=== PATIENT | female | born 1975 | race Two or more races ===

== ENCOUNTER 2017-04-02 15:39 | Emergency (ER) | payer MEDICAID ==
[~2017-04-02] VITALS: Ht 165.1 cm; Wt 9.1 kg
[2017-04-02 18:26] LABS: Basophils # (auto) 0 uL; Basophils % (auto) 0.4 % (0.0-2.0); CONDITION Y; Eosinophils # (auto) 0.1 uL; Eosinophils % (auto) 0.9 % (0.0-7.0); Hematocrit 41.8 % (36.0-46.0); Hemoglobin 14.2 g/dL (12.2-16.2); Lymphocytes # (auto) 3.2 uL; Lymphocytes % (auto) 35.7 % (10.0-50.0); Mean Corpuscular Hemoglobin 32.1 pg (28.0-32.0); Mean Corpuscular Volume 94.3 fL (80.0-100.0); Mean Platelet Volume 7.7 fL (7.4-10.4); Monocytes # (auto) 0.4 uL; Monocytes % (auto) 4.4 % (0.0-12.0); Neutrophils # (auto) 5.2 uL; Neutrophils % (auto) 58.6 % (37.0-80.0); Platelet Count (auto) 340 10^3/uL (140-450); Red Cell Distribution Width 14.8 % (11.6-16.0); White Blood Cell 8.9 10^3/uL (4.4-10.8)
[2017-04-02 18:43] LABS: Albumin 3.6 g/dL (3.4-5.0); BUN/Creatinine Ratio 8.2; Calcium 8.2 mg/dL (8.5-10.1)
[2017-04-02 18:46] LABS: Bilirubin, Total 0.1 mg/dL (0.2-1.0); Total Protein 6.9 g/dL (6.4-8.2)
[2017-04-02 19:42] LABS: Urine Bilirubin Negative (Negative); Urine Blood Negative /uL (Negative); Urine Color Yellow (Yellow); Urine Glucose Normal (Normal); Urine Ketone Negative (Negative); Urine Mucus FEW (None Seen); Urine Nitrite Negative (Negative); Urine RBC 1 /hpf (0 - 4); Urine Squamous Epithelial Cell FEW /hpf (<5); Urine Urobilinogen Normal (Negative); Urine pH 6.5 (5.0-8.0)
[2017-04-02] MEDS ORDERED: KETOROLAC TROMETH 60MG/2ML VIAL IM ONE (20:45)
[2017-04-02] MEDS ORDERED: IOHEXOL 300 MG/ML 100ML BOTTLE IJ ONE (20:54)
[2017-04-02] MEDS ORDERED: KETOROLAC TROMETH 30 MG/ML 1ML VIAL IV ONE (21:30)
[2017-04-02 22:12] VITALS: BP 115/70
== END 2017-04-03 00:04 | disposition home or self-care (01) ==
LOC: ER 15:49
DX: R10.84 Generalized abdominal pain (principal); I50.9 Heart failure, unspecified; J44.9 Chronic obstructive pulmonary disease, unspecified; Z87.442 Personal history of urinary calculi; Z86.19 Personal history of other infectious and parasitic diseases; Z88.8 Allergy status to other drugs, medicaments and biological substances
CPT/HCPCS: 36415; 74177; 80053; 81001; 81025; 82150; 83690; 85025; 96374; 99285; J1885; Q9967

== ENCOUNTER 2023-09-18 10:03 | Emergency (ER) | payer MEDICAID ==
[~2023-09-18] VITALS: Ht 167.6 cm; Wt 112.0 kg
[2023-09-18] MEDS ORDERED: PENICILLIN G BENZ 1,200,000 UNITS/2 ML SYRG IM ONE (15:15)
[2023-09-18 15:45] VITALS: BP 132/98; PULSE 96; RESP 20; O2SAT 96
[2023-09-18 16:16] LABS: Urine Bacteria NONE SEEN /hpf (None Seen); Urine Blood Negative /uL (Negative); Urine Clarity Clear (Clear); Urine Color Yellow (Yellow); Urine Protein, UAD Negative (Negative); Urine Specific Gravity 1.011 (1.001-1.035); Urine Urobilinogen Normal (Negative); Urine WBC 1 /hpf (0 - 5)
[2023-09-20 19:06] LABS: Treponema pallidum Ab (FTA-Ab) Reactive (Non Reactive)
== END 2023-09-18 16:03 | disposition home or self-care (01) ==
LOC: ER 10:03
DX: A53.9 Syphilis, unspecified (principal); J44.9 Chronic obstructive pulmonary disease, unspecified; Z87.440 Personal history of urinary (tract) infections
CPT/HCPCS: 81001; 86592; 86703; 96372; 99283; J0561

== ENCOUNTER 2023-10-02 12:25 | Emergency (ER) | payer MEDICAID ==
[~2023-10-02] VITALS: Ht 167.6 cm; Wt 118.9 kg
[2023-10-02 14:35] VITALS: BP 119/75; PULSE 107; RESP 18; TEMP 98.4; O2SAT 98
[2023-10-02] MEDS ORDERED: PROCHLORPERAZINE EDISYLATE 5 MG/ML 2ML VIAL IM ONE (14:45)
[2023-10-02] MEDS ORDERED: KETOROLAC TROMETH 60MG/2ML VIAL IM ONE (14:45)
[2023-10-02] MEDS ORDERED: diphenhdrAMINE HCL 25 MG CAP PO ONE (14:45)
[2023-10-02] MEDS ORDERED: PENICILLIN G BENZ 1,200,000 UNITS/2 ML SYRG IM ONE (14:45)
== END 2023-10-02 15:54 | disposition home or self-care (01) ==
LOC: ER 12:25
DX: A53.9 Syphilis, unspecified (principal); R51.9 Headache, unspecified; J44.9 Chronic obstructive pulmonary disease, unspecified
CPT/HCPCS: 96372; 99284; J0561; J0780; J1885

== ENCOUNTER 2024-01-30 21:14 | Emergency (ER) | payer MEDICAID ==
[~2024-01-30] VITALS: Ht 167.6 cm; Wt 100.0 kg
[2024-01-31 00:46] LABS: Acetaminophen < 2.0 UG/ML (10.0-20.0)
[2024-01-31 00:49] LABS: Salicylate < 3.0 mg/dL (2.8-20.0)
[2024-01-31] MEDS: diphenhdrAMINE HCL 50 MG/1 ML VL IM ONE (01:53)
[2024-01-31] MEDS: LORazepam 2MG/ML-1ML VIAL IM ONE (01:54)
[2024-01-31] MEDS: HALOPERIDOL LACTATE 5 MG/ML INJ VIAL IM ONE (03:33)
[2024-01-31] MEDS: HALOPERIDOL LACTATE 5 MG/ML INJ VIAL ONE (03:33)
[2024-01-31] MEDS: ALBUTEROL SULF 2.5 MG/0.5ML(0.5%) NEB SOLN NEB ONE (04:10)
[2024-01-31] MEDS: IPRATROPIUM BROM 0.5 MG/2.5ML INH SOL NEB ONE (04:10)
[2024-01-31 06:03] LABS: Amphetamine Screen, Urine Pos (NEGATIVE); Barbiturate Scree,Urine Neg (NEGATIVE)
[2024-01-31 06:04] LABS: Benzodiazephine Screen, Urine Neg (NEGATIVE); Cocaine Screen, Urine Neg (NEGATIVE)
[2024-01-31 06:05] LABS: Cannabinoid Screen, Urine Neg (NEGATIVE); Opiate Scree,Urine Neg (NEGATIVE); Phencyclidine Screen, Urine Neg (NEGATIVE)
[2024-01-31 08:14] VITALS: PULSE 78; RESP 16; O2SAT 92
[2024-01-31] MEDS: QUEtiapine FUMARATE 100 MG TAB PO SCH (21:07)
[2024-02-01 02:20] VITALS: PULSE 97; RESP 16; O2SAT 92
[2024-02-01 08:00] VITALS: PULSE 84; RESP 14; O2SAT 95
[2024-02-01 12:54] VITALS: BP 98/64; PULSE 82; RESP 14; TEMP 97.9; O2SAT 98
== END 2024-02-01 13:16 | disposition short-term general hospital (02) ==
LOC: EDBD 21:14 → ER 21:14
DX: F32.9 Major depressive disorder, single episode, unspecified (principal); R45.851 Suicidal ideations; I50.9 Heart failure, unspecified; J44.9 Chronic obstructive pulmonary disease, unspecified; Z88.8 Allergy status to other drugs, medicaments and biological substances; Z79.899 Other long term (current) drug therapy
CPT/HCPCS: 36415; 80307; 80320; 80329; 81025; 94640; 96372; 99285; J1200; J1630; J2060; J7644